=== PATIENT | male | born 1980 | race Two or more races ===

== ENCOUNTER 2023-01-05 16:34 | Inpatient (IN) | payer SELFPAY ==
[2023-01-05 16:59] LABS: #Eosinphils 0.1 thou/uL (0.0-0.7); #Monocytes 0.4 thou/uL (0.11-0.59); #Neutrophils 4.8 thou/uL (1.40-6.50); %Basophils 0.6 % (0.0-1.0); %Eosinophils 1.3 % (0.0-10.0); %Lymphocytes 14.5 % (21.0-51.0); %Monocytes 5.6 % (0.0-10.0); %Neutrophils 77.8 % (42.0-75.0); Hematocrit 39.5 % (42.0-52.0); Mean Corpuscular HGB CONC 30.4 g/dL (32.0-36.0); Mean Corpuscular Hemoglobin 27.6 pg (27.0-31.0); Mean Corpuscular Volume 90.8 fl (78.0-98.0); Mean Platelet Volume 9.7 fL (7.4-10.4); Platelet Count 182 10x3/uL (130-400); RBC Distribution Width 15.4 % (11.5-14.5); Red Blood Cell (RBC) Count 4.35 mill/uL (4.70-6.10); White Blood Cell (WBC) Count 6.2 10x3/uL (4.8-10.8)
[2023-01-05] MEDS ORDERED: Furosemide 100 MG/10 ML VIAL ONE (17:17)
[2023-01-05] MEDS ORDERED: Aspirin Chewable 81 MG TAB ONE (17:17)
[2023-01-05 17:26] LABS: ALT (SGPT) 15 U/L (8-55); AST (SGOT) 17 U/L (5-34); Albumin 3.7 g/dL (3.5-5.0); Alkaline Phosphatase 157 U/L (40-110); Anion Gap 12 mmol/L (10-20); BUN (Urea Nitrogen) 9 mg/dL (8.9-20.6); Bilirubin, Total 1.2 mg/dL (0.2-1.2); Calc. Creatinine Clearance 0 mL/min (70-130); Calcium 8.9 mg/dL (7.8-10.44); Carbon Dioxide 28 mmol/L (22-29); Chloride 101 mmol/L (98-107); Estimated GFR 104; Glucose 92 mg/dL (70-105); Potassium 4.1 mmol/L (3.5-5.1); Protein, Total 7.7 g/dL (6.0-8.3); Sodium 137 mmol/L (136-145)
[2023-01-05 17:27] LABS: Troponin I 0.012 ng/mL (< 0.028)
[2023-01-05] MEDS ORDERED: Ondansetron PF 4 MG/2 ML Vial ONE (17:36)
[2023-01-05] MEDS ORDERED: Morphine 4 MG/ML VIAL ONE (17:36)
[2023-01-05] MEDS ORDERED: Ondansetron ODT 4 MG TAB PO PRN (18:10)
[2023-01-05] MEDS ORDERED: Acetaminophen 325 MG TAB PO PRN (18:10)
[2023-01-05 19:40] LABS: Magnesium 1.8 mg/dL (1.6-2.6)
[2023-01-05] MEDS: Famotidine 20 MG TAB PO SCH (20:42)
[2023-01-05] MEDS: Carvedilol 3.125 MG TAB PO SCH (20:42)
[2023-01-05 20:44] VITALS: BMI 26.2
[2023-01-05] MEDS ORDERED: Magnesium 2 GM/50 ML(in water) 2 GM in Premix 1 BAG IVPB SCH (21:30)
[2023-01-05] MEDS ORDERED: Electrolyte Replacement Protocol 1 EACH FS SCH (21:30)
[2023-01-05 21:53] LABS: Troponin I 0.014 ng/mL (< 0.028)
[2023-01-06 02:32] LABS: Troponin I Less than 0.010 ng/mL (< 0.028)
[2023-01-06 03:37] LABS: #Eosinphils 0.2 thou/uL (0.0-0.7); #Monocytes 0.4 thou/uL (0.11-0.59); #Neutrophils 3.4 thou/uL (1.40-6.50); %Basophils 0.7 % (0.0-1.0); %Eosinophils 3.5 % (0.0-10.0); %Lymphocytes 25.7 % (21.0-51.0); %Monocytes 7.2 % (0.0-10.0); %Neutrophils 62.7 % (42.0-75.0); Hematocrit 37.8 % (42.0-52.0); Hemoglobin 11.3 g/dL (14.0-18.0); Mean Corpuscular HGB CONC 29.9 g/dL (32.0-36.0); Platelet Count 166 10x3/uL (130-400); RBC Distribution Width 15.7 % (11.5-14.5); Red Blood Cell (RBC) Count 4.04 mill/uL (4.70-6.10); White Blood Cell (WBC) Count 5.4 10x3/uL (4.8-10.8)
[2023-01-06 03:39] LABS: Mean Corpuscular Volume 93.6 fl (78.0-98.0)
[2023-01-06 04:01] LABS: Anion Gap 12 mmol/L (10-20); BUN (Urea Nitrogen) 13 mg/dL (8.9-20.6); Calc. Creatinine Clearance 132 mL/min (70-130); Calcium 8.4 mg/dL (7.8-10.44); Carbon Dioxide 28 mmol/L (22-29); Chloride 101 mmol/L (98-107); Estimated GFR 99; Glucose 86 mg/dL (70-105); Potassium 4.3 mmol/L (3.5-5.1); Sodium 137 mmol/L (136-145)
[2023-01-06] MEDS ORDERED: Furosemide 40 MG/4 ML VIAL SLOW IVP SCH ×2 (06:00→10:38)
[2023-01-06] MEDS ORDERED: Losartan 25 MG TAB PO SCH (09:00)
[2023-01-06] MEDS: Carvedilol 3.125 MG TAB PO SCH ×2 (09:27→22:22)
[2023-01-06] MEDS: Potassium Chloride 20 MEQ TAB PO SCH (09:27)
[2023-01-06] MEDS: Famotidine 20 MG TAB PO SCH ×2 (09:27→20:11)
[2023-01-06] MEDS: Aspirin 325 mg Enteric Coated Tablet PO SCH (09:27)
[2023-01-06] MEDS: HYDROcodone/Acetaminophen 5/325 mg Tablet PO PRN ×2 (10:20→20:11)
[2023-01-06] MEDS ORDERED: Furosemide 100 MG/10 ML VIAL SLOW IVP SCH (10:45)
[2023-01-06] MEDS ORDERED: Spironolactone 25 MG TAB PO SCH (10:45)
[2023-01-06] MEDS: Amiodarone 200 MG TAB PO SCH ×3 (11:59→20:11)
[2023-01-06] MEDS: Furosemide 100 MG/10 ML VIAL SLOW IVP SCH (14:55)
[2023-01-07 04:35] LABS: #Basophils 0.1 thou/uL (0.0-0.2); #Eosinphils 0.1 thou/uL (0.0-0.7); #Monocytes 0.4 thou/uL (0.11-0.59); #Neutrophils 4.1 thou/uL (1.40-6.50); %Basophils 0.9 % (0.0-1.0); %Eosinophils 2.1 % (0.0-10.0); %Neutrophils 70.8 % (42.0-75.0); Hematocrit 38.4 % (42.0-52.0); Hemoglobin 11.7 g/dL (14.0-18.0); Mean Corpuscular HGB CONC 30.5 g/dL (32.0-36.0); Mean Corpuscular Hemoglobin 27.4 pg (27.0-31.0); Mean Corpuscular Volume 89.9 fl (78.0-98.0); Mean Platelet Volume 10.3 fL (7.4-10.4); Platelet Count 187 10x3/uL (130-400); RBC Distribution Width 15.6 % (11.5-14.5); Red Blood Cell (RBC) Count 4.27 mill/uL (4.70-6.10); White Blood Cell (WBC) Count 5.8 10x3/uL (4.8-10.8)
[2023-01-07 05:06] LABS: Anion Gap 12 mmol/L (10-20); BUN (Urea Nitrogen) 18 mg/dL (8.9-20.6); Calc. Creatinine Clearance 115 mL/min (70-130); Calcium 8.9 mg/dL (7.8-10.44); Carbon Dioxide 33 mmol/L (22-29); Chloride 94 mmol/L (98-107); Estimated GFR 85; Glucose 110 mg/dL (70-105); Potassium 3.9 mmol/L (3.5-5.1); Sodium 135 mmol/L (136-145)
[2023-01-07] MEDS: Furosemide 100 MG/10 ML VIAL SLOW IVP SCH ×2 (06:03→14:16)
[2023-01-07] MEDS: Amiodarone 200 MG TAB PO SCH ×3 (08:55→20:34)
[2023-01-07] MEDS: Aspirin 325 mg Enteric Coated Tablet PO SCH (08:55)
[2023-01-07] MEDS: Carvedilol 3.125 MG TAB PO SCH ×2 (08:55→20:34)
[2023-01-07] MEDS: Potassium Chloride 20 MEQ TAB PO SCH (08:55)
[2023-01-07] MEDS: Famotidine 20 MG TAB PO SCH ×2 (08:56→20:34)
[2023-01-07] MEDS: Spironolactone 25 MG TAB PO SCH (08:56)
[2023-01-07] MEDS: HYDROcodone/Acetaminophen 5/325 mg Tablet PO PRN (15:50)
[2023-01-07] MEDS: Sacubitril 24MG/Valsartan 26 MG TAB PO SCH (20:34)
[2023-01-08] MEDS: Furosemide 100 MG/10 ML VIAL SLOW IVP SCH (05:51)
[2023-01-08 07:10] VITALS: TEMP 97.7
[2023-01-08 07:21] LABS: #Eosinphils 0.1 thou/uL (0.0-0.7); #Monocytes 0.5 thou/uL (0.11-0.59); #Neutrophils 4.4 thou/uL (1.40-6.50); %Basophils 0.6 % (0.0-1.0); %Eosinophils 1.9 % (0.0-10.0); %Lymphocytes 19.2 % (21.0-51.0); %Monocytes 7.4 % (0.0-10.0); %Neutrophils 70.6 % (42.0-75.0); Hematocrit 39.7 % (42.0-52.0); Hemoglobin 12.3 g/dL (14.0-18.0); Mean Corpuscular Hemoglobin 27.6 pg (27.0-31.0); Mean Corpuscular Volume 89.2 fl (78.0-98.0); Mean Platelet Volume 9.7 fL (7.4-10.4); Platelet Count 200 10x3/uL (130-400); RBC Distribution Width 15.4 % (11.5-14.5); Red Blood Cell (RBC) Count 4.45 mill/uL (4.70-6.10); White Blood Cell (WBC) Count 6.2 10x3/uL (4.8-10.8)
[2023-01-08 07:49] LABS: Anion Gap 10 mmol/L (10-20); BUN (Urea Nitrogen) 24 mg/dL (8.9-20.6); Calc. Creatinine Clearance 107 mL/min (70-130); Carbon Dioxide 33 mmol/L (22-29); Chloride 96 mmol/L (98-107); Estimated GFR 85; Glucose 89 mg/dL (70-105); Potassium 4.2 mmol/L (3.5-5.1); Sodium 135 mmol/L (136-145)
[2023-01-08] MEDS: Sacubitril 24MG/Valsartan 26 MG TAB PO SCH (07:51)
[2023-01-08] MEDS: Aspirin 325 mg Enteric Coated Tablet PO SCH (07:51)
[2023-01-08] MEDS: Amiodarone 200 MG TAB PO SCH (07:51)
[2023-01-08] MEDS: Potassium Chloride 20 MEQ TAB PO SCH (07:51)
[2023-01-08] MEDS: Spironolactone 25 MG TAB PO SCH (07:52)
[2023-01-08] MEDS: Famotidine 20 MG TAB PO SCH (07:52)
[2023-01-08] MEDS: Carvedilol 3.125 MG TAB PO SCH (08:14)
[2023-01-08 11:21] VITALS: BP 92/66
== END 2023-01-08 13:33 | disposition left against medical advice (07) | DRG 291 ==
LOC: ERS 16:34 → OBSVTOIN 17:56 → 2SW 17:56
PROVIDERS: ADMIT Internal Medicine; ATTEND Family Medicine
DX: I11.0 Hypertensive heart disease with heart failure (principal); I50.23 Acute on chronic systolic (congestive) heart failure; I47.20 Ventricular tachycardia, unspecified; J98.11 Atelectasis; I42.0 Dilated cardiomyopathy; E11.9 Type 2 diabetes mellitus without complications; F17.210 Nicotine dependence, cigarettes, uncomplicated; F12.929 Cannabis use, unspecified with intoxication, unspecified; Z88.1 Allergy status to other antibiotic agents; Z91.199 Patient's noncompliance with other medical treatment and regimen due to unspecified reason
CPT/HCPCS: 36415; 71045; 80048; 80053; 83735; 83880; 84484; 85025; 93005; 96372; 96374; 96375; 96376; G0378; J1650; J1940; J2270; J2405; J3475